=== PATIENT | male | born 1965 | race Caucasian/White ===

== ENCOUNTER 2016-10-22 10:59 | Emergency (ER) ==
[2016-10-22] MEDS ORDERED: NITROSTAT SL PRN (11:05)
[2016-10-22 11:07] VITALS: BP 164/104; TEMP 99.2; BMI 36.3
--- NOTE | 2016-10-22 11:33 | DI ---
EXAM: Chest one view, frontal view only. HISTORY: Chest pain. COMPARISON: 10/16/2013. FINDINGS: The heart size is normal. There is no pulmonary vascular congestion. The lungs are bean r. No pleural effusion or pneumothorax is seen. No acute osseous abnormality is identified. Since the prior study, there has been no significant interval change. IMPRESSION: No acute cardiopulmonary process.
[2016-10-22 12:05] LABS: BASOPHILS # (AUTO) 0.1 K/uL (0-0.2); BASOPHILS % (AUTO) 0.4 % (0.0-3.0); EOSINOPHILS # (AUTO) 0.3 K/ul (0.0-0.7); HEMATOCRIT 40.5 % (42.0-52.0); HEMOGLOBIN 14.7 g/dl (14.0-18.0); IMMATURE GRANULOCYTE % (AUTO) 0.7 % (0.0-5.0); LYMPHOCYTES # (AUTO) 3.4 K/uL (0.60-3.4); MEAN CORPUSCULAR HEMOGLOBIN 29.9 pg (27.0-31.0); MEAN CORPUSCULAR HGB CONC 36.3 (31.8-35.4); MEAN CORPUSCULAR VOLUME 82.5 fl (80.0-94.0); MONOCYTES # (AUTO) 0.7 K/uL (0.4-2.0); MONOCYTES % (AUTO) 5.2 (0-10); NEUTROPHILS # (AUTO) 8.6 K/ul (2.0-6.9); NEUTROPHILS % (AUTO) 65.7; PLATELET COUNT 280 10^3/uL (140-440); RED BLOOD COUNT 4.91 10^6/ul (4.70-6.10); WHITE BLOOD COUNT 13.07 K/ul (4.2-10.2)
--- NOTE | 2016-10-22 12:06 | ED.PDOC ---
General ED Provider: Dr. ARCADIO ROMERO JR Chief Complaint: Chest Pain Stated Complaint: woke up this am with pain to midchest that radiates into back- -sl sweaty--was able to go to work but pain is persistent and had to leave--had ekg with dr quintero at [facility] earlier this week--stress test scheduled.--stent placed 2013-pain has been off and on past 2 weeks [End]SINCE 0500 99.2 81 20 94 % 164/104 7/10 pain most every day for two to three weeks usually goes away still present today ibuprofenx 3--aspirin 325 at 0600--CONTINUOUS HEAVY BURNING PRESSURE WITH SWEATS Time Seen by Physician: 12:03 Mode of Arrival: Walk-In Information Source: Patient Exam Limitations: No limitations, Other Primary Care Provider: TIAN PA Nursing and Triage Documentation Reviewed and Agree: No Review of Systems - Review Of Systems Constitutional: Reports: Diaphoresis, Malaise Eyes: Reports: No symptoms Ears, Nose, Mouth, Throat: Reports: No symptoms Respiratory: Reports: No symptoms Cardiac: Reports: Chest pain GI: Reports: Abdominal pain : Reports: No symptoms Musculoskeletal: Reports: No symptoms Skin: Reports: No symptoms Neurological: Reports: No symptoms Endocrine: Reports: No symptoms Hematologic/Lymphatic: Reports: No symptoms All Other Systems: Other Past Medical History - Past Medical History Endocrine: Reports: DM 1, Dyslipidemia Cardiovascular: Reports: CAD, [place], Hypertension Respiratory: Reports: None Hematological: Reports: None Gastrointestinal: Reports: None Genitourinary: Reports: None Neuro/Psych: Reports: None Musculoskeletal: Reports: None Cancer: Reports: None - Surgical History General Surgical History: Reports: Stent (cardiac stent--), Other (brain surg- 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) - Family History Family History: Reports: Cancer (tumor removed upper left lobe) - Social History Smoking Status: Former smoker Hx Substance Use: No Alcohol Screening: None Physical Exam - Physical Exam Appearance: Ill-appearing, Obese Pain Distress: Moderate Eyes: AMISH, EOMI, Conjunctiva clear ENT: Ears normal, Nose normal, Oropharynx normal Neck: Supple Respiratory: Airway patent, Breath sounds clear, Breath sounds equal Cardiovascular: RRR, Pulses normal, No rub, No murmur GI/: Soft, Tender (epigastrium) Musculoskeletal: Normal strength, ROM intact, No edema, No calf tenderness Skin: Warm, Dry, Normal color Neurological: Sensation intact, Motor intact, Reflexes intact, Cranial nerves intact, Alert, Oriented Psychiatric: Affect appropriate, Mood appropriate Interpretation - Radiology Interpretation Radiology Interpretation By: Radiologist Radiology Results: Negative Exam Interpreted: CXR Radiology Interpretation By: Radiologist Radiology Results: Positive (mild acute pancreatitis) Exam Interpreted: CT Scan - EKG Interpretation Time of EKG #1: 11:20 Rate: Normal Rhythm: Sinus Ectopy: None [place]: NL ST Segment: Normal Critical Care Note - Critical Care Note Total Time (mins): 5 Course - Course Hematology/Chemistry: 10/22/16 11:27 10/22/16 11:27 Orders, Labs, Meds: Lab Review 10/22/16 11:27 WBC 13.07 H RBC 4.91 Hgb 14.7 Hct 40.5 L MCV 82.5 MCH 29.9 MCHC 36.3 H RDW Coeff of Mckayla 15.2 H Plt Count 280 Immature Gran % (Auto) 0.7 Neut % (Auto) 65.7 Lymph % (Auto) 26.0 [place] % (Auto) 5.2 Eos % (Auto) 2.0 Baso % (Auto) 0.4 Immature Gran # (Auto) 0.1 Neut # 8.6 H Lymph # 3.4 [place] # 0.7 Eos # 0.3 Baso # 0.1 Sodium 136 Potassium 4.4 Chloride 103 Carbon Dioxide 12 L Anion Gap 25.4 BUN 21 H Creatinine 1.07 Estimated GFR (MDRD) 72.00 BUN/Creatinine Ratio 19.62 Glucose 256 H Calcium 9.2 Total Bilirubin 0.70 AST 51 H ALT 105 H Alkaline Phosphatase 224 H Total Creatine Kinase 102 Troponin I < 0.0100 B-Natriuretic Peptide 22 Total Protein 8.1 Albumin 3.2 L Globulin 4.9 Albumin/Globulin Ratio 0.65 Amylase 80 Lipase 419 H H. pylori IgG Antibody Negative Orders Category Date Time Status EKG-(ED ONLY) Stat CARDIO 10/22/16 11:05 Completed ED IV/MEDIPORT/POWERPORT .ONCE EMERGENCY 10/22/16 11:05 Active AMYLASE Stat LAB 10/22/16 11:27 Completed B-TYPE NATRIURETIC PEPTIDE Stat LAB 10/22/16 11:27 Completed CBC W/ AUTO DIFF Stat LAB 10/22/16 11:27 Completed COMPREHENSIVE METABOLIC PANEL Stat LAB 10/22/16 11:27 Completed CREATINE KINASE Stat LAB 10/22/16 11:27 Completed H. PYLORI SCREEN Stat LAB 10/22/16 11:27 Completed LIPASE Stat LAB 10/22/16 11:27 Completed TROPONIN I Stat LAB 10/22/16 11:27 Completed URINALYSIS C & S IF INDICATED Stat LAB 10/22/16 12:15 Uncollected 0.9 % Sodium Chloride [Saline Flush] MEDS 10/22/16 11:05 Active 1 syr IVF PRN PRN Morphine Sulfate [Morphine 4 mg/ml Syringe] MEDS 10/22/16 13:57 Discontinued 4 mg IVP ONCE STA Nitroglycerin [Nitrostat] MEDS 10/22/16 11:05 Active 0.4 mg SL Q5MIN X 3 DOSES PRN Ondansetron HCl/Pf [Zofran 4 mg/2 ml] MEDS 10/22/16 13:57 Discontinued 4 mg IVP ONCE STA Pantoprazole Sodium [Protonix IV] MEDS 10/22/16 12:16 Discontinued 40 mg IVP ONCE STA Sodium Chloride 0.9% [Sodium Chloride] 1,000 ml MEDS 10/22/16 13:36 Active IV 200 mls/hr CHEST, 1V AP ONLY Stat RADS 10/22/16 11:[address] ABDOMEN/PELVIS WO CONTRAST Stat RADS 10/22/16 12:15 Completed Medications Generic Name Dose Route Start Last Admin Trade Name Freq PRN Reason Stop Dose Admin Sodium Chloride 1,000 mls @ 200 mls/hr 10/22/16 13:36 10/22/16 12:06 Sodium Chloride IV 10/22/16 18:35 200 mls/hr .Q5H STA Administration Nitroglycerin 0.4 mg 10/22/16 11:05 10/22/16 11:38 Nitrostat SL 0.4 mg Q5MIN X 3 DOSES PRN Administration Chest Pain Sodium Chloride 1 syr 10/22/16 11:05 10/22/16 11:35 Saline Flush IVF 1 syr PRN PRN Administration To flush IV Discontinued Medications Generic Name Dose Route Start Last Admin Trade Name Freq PRN Reason Stop Dose Admin Morphine Sulfate 4 mg 10/22/16 13:57 10/22/16 14:06 Morphine 4 Mg/Ml Syringe IVP 10/22/16 13:58 4 mg ONCE STA Administration Ondansetron HCl 4 mg 10/22/16 13:57 10/22/16 14:03 Zofran 4 Mg/2 Ml IVP 10/22/16 13:58 4 mg ONCE STA Administration Pantoprazole Sodium 40 mg 10/22/16 12:16 10/22/16 12:30 Protonix Iv IVP 10/22/16 12:17 40 mg ONCE STA Administration Vital Signs: Temp Pulse Resp BP Pulse Ox 10/22/16 11:00 99.2 F 81 20 164/104 H 94 L DOROTHY Risk Score DOROTHY Risk Score: Risk Score Odds of by 30D 0 0.1 (0.1-0.2) 1 0.3 (0.2-0.3) 2 0.4 (0.3-0.5) 3 0.7 (0.6-0.9) 4 1.2 (1.0-1.5) 5 2.2 (1.9-2.6) 6 3.0 (2.5-3.6) 7 4.8 (3.8-6.1) Departure - Departure Time of Disposition: 14:57 Disposition: TSF SHORT-TRM HOSP Discharge Problem: Acute pancreatitis Qualifiers: Pancreatitis type: unspecified pancreatitis type Acute pancreatitis complication: no infection or necrosis Qualifier Code: (K85.90) Acute pancreatitis without necrosis or infection, unspecified Condition: Stable Pt referred to PMD for follow-up: Yes Allergies/Adverse Reactions: Allergies No Known Allergies Allergy (Verified 10/22/16 11:23) Home Medications: Ambulatory Orders Aspirin [Lo-Dose Aspirin EC] 81 mg PO DAILY 10/22/16 Atorvastatin Calcium 80 mg PO BEDTIME 10/22/16 Fenofibrate,Micronized [Fenofibrate] 134 mg PO DAILY 10/22/16 Insulin Glargine,Hum.rec.anlog [Lantus] 125 unit SUBCUT BEDTIME 10/22/16 Insulin Lispro [Humalog] 15 unit SUBCUT TIDWM 10/22/16 Lisinopril [Zestril] 5 mg PO DAILY 10/22/16 Metformin HCl 1,000 mg PO BEDTIME 10/22/16 Metoprolol Tartrate [Lopressor] 75 mg PO BID 10/22/16
[2016-10-22] MEDS ORDERED: PROTONIX IV IVP STA (12:16)
[2016-10-22 12:31] LABS: H. PYLORI ANTIBODY NEGATIVE (NEGATIVE); H.PYLORI INTERNAL QC INTERNAL QC VALID
[2016-10-22 13:24] LABS: AMYLASE 80 U/L (25-115); POTASSIUM 4.4 mmol/L (3.5-5.1)
[2016-10-22 13:25] LABS: ANION GAP 25.4; BLOOD UREA NITROGEN 21 mg/dL (7-18); BUN/CREATININE RATIO 19.62; CALCIUM 9.2 mg/dL (8.2-10.2); CARBON DIOXIDE 12 mmol/L (21-32); CHLORIDE 103 mmol/L (98-107); CREATININE 1.07 mg/dL (0.60-1.10); GLUCOSE 256 mg/dL (70-100)
[2016-10-22 13:26] LABS: ALANINE AMINOTRANSFERASE 105 U/L (12-78); ALBUMIN 3.2 g/dL (3.4-5.0); ALBUMIN/GLOBULIN RATIO 0.65; ALKALINE PHOSPHATASE 224 U/L (50-136); ASPARTATE AMINO TRANSFERASE 51 U/L (15-37); TOTAL PROTEIN 8.1 g/dL (6.4-8.2)
[2016-10-22 13:27] LABS: LIPASE 419 U/L (8-78); SODIUM 136 mmol/L (136-145)
[2016-10-22 13:29] LABS: CREATINE KINASE 102 U/L
[2016-10-22] MEDS ORDERED: SODIUM CHLORIDE 1,000 ML IV STA (13:36)
--- NOTE | 2016-10-22 13:53 | CT ---
EXAM: CT Abdomen without contrast. CT Pelvis without contrast. HISTORY: Epigastric pain for 2-3 weeks. COMPARISON: None available. TECHNIQUE: Multiple axial images of the abdomen and pelvis were obtained without intravenous contra st. Images were reformatted in the coronal plane. FINDINGS: Please note that evaluation of the abdominal and pelvic structures is limited due to lack of intravenous contrast. Dependent subsegmental atelectasis noted in the posterior right lower lobe. Degenerative changes pr esent in the spine. The liver is enlarged. The gallbladder is unremarkable. There is haziness surrounding the pancreat ic head. Pancreatic tail appears unremarkable. The spleen and adrenal glands appear normal. There is a 0.3 cm nonobstructing right renal calculus. No hydronephrosis identified. Small hiatal hernia noted. There is no evidence for bowel obstruction. A few diverticula present i n the colon. The appendix is normal. Urinary bladder is unremarkable. Prostatic calcifications ar e present. Atherosclerotic calcifications noted. There is a small fat-containing umbilical hernia. No free fluid or free air identified IMPRESSION: 1. Mild acute pancreatitis involving the pancreatic head. Consider pancreatic protocol abdominal C T in 4-6 weeks after resolution of symptoms to exclude underlying mass. 2. Hepatomegaly. 3. Right nephrolithiasis. 4. Small hiatal hernia. 5. Mild diverticulosis.
[2016-10-22] MEDS ORDERED: ZOFRAN 4 MG/2 ML IVP STA (13:57)
[2016-10-22] MEDS ORDERED: MORPHINE 4 MG/ML SYRINGE IVP STA (13:57)
[2016-10-22] MEDS ORDERED: MORPHINE 2 MG/ML SYRINGE IVP STA (14:59)
[2016-10-22 15:54] LABS: BILIRUBIN,URINE Negative (NEGATIVE); KETONES,URINE Negative (NEGATIVE); LEUKOCYTE ESTERASE ,URINE Negative (NEGATIVE); NITRITE,URINE Negative (NEGATIVE); PH,URINE 5.5 (5-9); PROTEIN,URINE 1+ (NEGATIVE); URINE, BLOOD Trace-lysed (NEGATIVE)
[2016-10-22 15:56] LABS: ADD URINE MICROSCOPIC YES
== END 2016-10-22 15:28 | disposition short-term general hospital (02) ==
LOC: ED 10:59
DX: K85.90 Acute pancreatitis without necrosis or infection, unspecified (principal); I10 Essential (primary) hypertension; I25.10 Atherosclerotic heart disease of native coronary artery without angina pectoris; E10.9 Type 1 diabetes mellitus without complications; E78.5 Hyperlipidemia, unspecified; I25.2 Old myocardial infarction; Z79.899 Other long term (current) drug therapy; Z95.5 Presence of coronary angioplasty implant and graft; Z86.79 Personal history of other diseases of the circulatory system
CPT/HCPCS: 36415; 80053; 81001; 82150; 82550; 83690; 83880; 84484; 85025; 86677; 93005; 93010; 96361; 96374; 96375; 96376; 99285

== ENCOUNTER 2017-05-03 10:12 | Emergency (ER) ==
[2017-05-03 10:22] VITALS: BP 148/92; TEMP 97; BMI 33.3
--- NOTE | 2017-05-03 10:29 | ED.PDOC ---
General ED Provider: Dr. JENNIFER SHIPMAN-ER Chief Complaint: Extremity Swelling/Pain Stated Complaint: i have diabetic neuropathy--ajk had it since sep--dr palma is increasing my gabapentin but its not helping and its making me sleeping Time Seen by Physician: 10:15 Mode of Arrival: Walk-In Information Source: Patient Exam Limitations: No limitations Primary Care Provider: TIAN PALMA Nursing and Triage Documentation Reviewed and Agree: Yes Neurological Complaint Exam - Neurological Deficit Complaint/Exam Patient Complains of: Reports: Abnormal sensation Symptom Onset Unknown: No Symptom Onset Date: 09/17/16 Onset: Gradual Symptoms Are: Still present Initial Severity: Mild Current Severity: Moderate Location: Reports: RUE, LUE, RLE, LLE Character: Reports: Numbness, Tingling, Paresthesia, Sensory loss Aggravating: Reports: None Alleviating: Reports: None Associated Signs and Symptoms: Denies: Confusion, Agitation, Responsiveness, LOC , Headache, Fever, Nuchal rigidity, Recent trauma, Remote trauma, Recent illness Related History: Reports: Similar episode CVA Risk Factors: Reports: Diabetes Carotid Bruit Present: No Glascow Coma Scale (see protocol): 15 Meningeal Signs Positive: No Focal Weakness: Present: None Focal Sensory Loss: Present: RUE, LUE, RLE, LLE Gait: Normal Nystagmus Present: No Gag Reflex Present: Yes [id number]: Normal Findings Romberg Test Positive: No Babinski Sign: Negative Right, Negative Left Heel to Toe Normal: Yes Signs of Trauma: No Differential Diagnoses: Other Review of Systems - Review Of Systems Constitutional: Reports: No symptoms Eyes: Reports: No symptoms Ears, Nose, Mouth, Throat: Reports: No symptoms Respiratory: Reports: No symptoms Cardiac: Reports: No symptoms GI: Reports: No symptoms : Reports: No symptoms Musculoskeletal: Reports: No symptoms Skin: Reports: No symptoms Neurological: Reports: Numbness, Tingling Endocrine: Reports: No symptoms Hematologic/Lymphatic: Reports: No symptoms All Other Systems: Reviewed and Negative Past Medical History - Past Medical History Previously Healthy: No Endocrine: Reports: DM 1, Dyslipidemia Cardiovascular: Reports: CAD, [place], Hypertension Respiratory: Reports: None Hematological: Reports: None Gastrointestinal: Reports: None Genitourinary: Reports: None Neuro/Psych: Reports: None Musculoskeletal: Reports: None Cancer: Reports: None - Surgical History General Surgical History: Reports: Stent (cardiac stent--), Other (brain surg- 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) - Family History Family History: Reports: Cancer (tumor removed upper left lobe) - Social History Smoking Status: Former smoker Hx Substance Use: No Alcohol Screening: None Lives: With family Physical Exam - Physical Exam Appearance: Well-appearing, No pain distress, Well-nourished Pain Distress: Mild Eyes: AMISH, EOMI, Conjunctiva clear ENT: Ears normal, Nose normal, Oropharynx normal Neck: Supple Respiratory: Airway patent, Breath sounds clear, Breath sounds equal, Respirations nonlabored Cardiovascular: RRR, Pulses normal, No rub, No murmur GI/: Soft, Nontender, No masses, Bowel sounds normal, No Organomegaly Musculoskeletal: Normal strength, ROM intact, No edema, No calf tenderness Skin: Warm, Dry, Normal color Neurological: Alert, Oriented, Focal Deficit (diminished sensation hands and feet and lower legs) Psychiatric: Affect appropriate, Mood appropriate Critical Care Note - Critical Care Note Total Time (mins): 0 Course - Course Vital Signs: Temp Pulse Resp BP Pulse Ox 05/03/17 10:14 97 F L 82 18 148/92 H 93 L Departure - Departure Time of Disposition: 10:31 Disposition: HOME SELF-CARE Discharge Problem: Neuropathy Instructions: Diabetic Peripheral Neuropathy (ED) Condition: Good Pt referred to PMD for follow-up: Yes Additional Instructions: stop gabapentin---lyrica 50mg tid x 7 days then 150mg bid --f/u with dr palma Allergies/Adverse Reactions: Allergies No Known Allergies Allergy (Verified 05/03/17 10:19) Home Medications: Ambulatory Orders Aspirin [Lo-Dose Aspirin EC] 81 mg PO DAILY 10/22/16 Atorvastatin Calcium 80 mg PO BEDTIME 10/22/16 Fenofibrate,Micronized [Fenofibrate] 134 mg PO DAILY 10/22/16 Insulin Glargine,Hum.rec.anlog [Lantus] 125 unit SUBCUT BEDTIME 10/22/16 Insulin Lispro [Humalog] 15 unit SUBCUT TIDWM 10/22/16 Lisinopril [Zestril] 5 mg PO DAILY 10/22/16 Metformin HCl 1,000 mg PO BEDTIME 10/22/16 Metoprolol Tartrate [Lopressor] 75 mg PO BID 10/22/16 Gabapentin 400 mg PO TID 05/03/17 Pantoprazole Sodium 400 mg PO DAILY 05/03/17 Disposition Discussed With: Patient
== END 2017-05-03 10:38 | disposition home or self-care (01) ==
LOC: ED 10:12
DX: E10.42 Type 1 diabetes mellitus with diabetic polyneuropathy (principal); Z79.4 Long term (current) use of insulin
CPT/HCPCS: 99283

== ENCOUNTER 2021-09-11 16:42 | Observation (INO) ==
--- NOTE | 2021-09-11 17:00 | ED.PDOC ---
General <JENNIFER CARRION DO - Last Filed: 09/12/21 12:15> ED Provider: Dr. JENNIFER CARRION Chief Complaint: Shortness of Air Stated Complaint: SOB-referred from dialysis, Advised O2 stat was in low 80%. Currently 92 % Room Air. Apparently recently discharged from [facility] after treatment of respiratory failure and was on ventilator for 5 days. States not sent home on oxygen Time Seen by Provider: 09/11/21 16:45 Mode of Arrival: Wheelchair Information Source: Patient Exam Limitations: No limitations Primary Care Provider: TIAN LEBLANC Referred to ED by: Other Nursing and Triage Documentation Reviewed and Agree: Yes Does patient meet sepsis criteria?: No System Inflammatory Response Syndrome: Not Applicable Sepsis Protocol: For patient's 13 years and over: Temp is 96.8 and below OR 101 and greater Pulse >90 BPM Resp >20/minute Acutely Altered Mental Status Are patient's symptoms suggestive of a new infection, such as: -Pneumonia -Skin, Soft Tissue -Endocarditis -UTI -Bone, Joint Infection -Implantable Device -Acute Abdominal Infection -Wound Infection -Meningitis -Blood Stream Catheter Infection -Unknown Respiratory Complaint Exam <JENNIFER CARRION DO - Last Filed: 09/12/21 12:15> Respiratory Complaint/Exam Onset/Duration: Long standing COPD Symptoms Are: Still present Timing: Constant Initial Severity: Moderate Current Severity: Mild Location: Chest Character: Reports Dry cough Aggravating: Reports Exertion Alleviating: Reports None Associated Signs and Symptoms: Reports Dyspnea; Denies Rapid breathing, Fever, Chills, Chest pain, Pleuritic chest pain, Wheezing, Hemoptysis, Dizziness, Calf pain, Calf swelling, Edema, URI, Nasal congestion, Hoarseness, Sinus discomfort, Vomiting, Sore throat, Weight loss, Decreased oral intake, Increased thirst, Increased appetite or Increased urination Related History: Reports Similar episode History of Healthcare-Acquired Pneumonia: No Related Surgical History: Reports None Pulmonary Embolism Risk Factors: None Cardiac Risk Factors: Reports None Pseudomonas Risk Factors: Reports None Tuberculosis Risk Factors: Reports None Status Asthmaticus Risk Factors: Reports None Home Oxygen Use: No Recent Stress Test: No Recent Echo/LV Function: No Current Antibiotic Use: No Current Asthma Medication Use: Yes Respiratory Distress: None Inadequate Respiratory Effort: Yes Dysphagia Present: No Stridor Present: No JVD Present: No Retractions: Not Present Sinus Tenderness: None Kussmaul Respirations: No Differential Diagnoses: COPD Exacerbation Review of Systems <DO Ok ROUSSEAU Last Filed: 09/12/21 12:15> Review Of Systems Constitutional: Reports Malaise and Weakness Eyes: Reports No symptoms Ears, Nose, Mouth, Throat: Reports No symptoms Respiratory: Reports Cough and Short of air Cardiac: Reports No symptoms GI: Reports No symptoms : Reports No symptoms Musculoskeletal: Reports No symptoms Skin: Reports No symptoms Neurological: Reports Anxiety Endocrine: Reports No symptoms All Other Systems: Reviewed and Negative PFSH <DO Ok ROUSSEAU Last Filed: 09/12/21 12:15> Medical History (Updated 09/11/21 @ 23:55 by OTILIO FLORES, RN) Acid reflux Acute renal failure on dialysis Brain aneurysm Diabetes Hypertension Myocardial infarct Pancreatitis Tumor Family History (Updated 09/11/21 @ 23:52 by OTILIO FLORES, RN) Other No known health problems Social History (Updated 09/11/21 @ 23:53 by OTILIO FLORES, RN) Smoking and tobacco status: Former smoker Tobacco: How many years used: 37 (Pt quit in 2020 after triple bypass) Surgical History (Updated 09/11/21 @ 23:52 by OTILIO FLORES, RN) Hx of CABG Physical Exam <DO Ok ROUSSEAU Last Filed: 09/12/21 12:15> Physical Exam Appearance: Reports Ill-appearing and Well-nourished Ill-appearing: Mild Pain Distress: Not Applicable Eyes: Reports AMISH, EOMI, Conjunctiva clear and Conjunctiva pale ENT: Reports Ears normal Neck: Supple Respiratory: Reports Airway patent, Breath sounds clear, Breath sounds equal, Breath sounds diminished and Respirations nonlabored Cardiovascular: Reports RRR, Pulses normal, No rub, No murmur and Irregular rhythm GI/: Reports Nontender, No masses and No Organomegaly Musculoskeletal: Reports Normal strength, ROM intact and No edema Skin: Reports Warm, Dry and Normal color Neurological: Reports Sensation intact, Motor intact, Reflexes intact, Cranial nerves intact, Oriented, Disoriented and Alert to verbal Psychiatric: Reports Affect appropriate, Mood appropriate and Anxious Interpretation <DO Ok ROUSSEAU Last Filed: 09/12/21 12:15> Radiology Interpretation Exam Interpreted: Portable CXR (Diffuse bilateral lung opacities likely due to pulmonary edema and/or multifocal pneumonia) Physician Notification <DO Ok ROUSSEAU Last Filed: 09/12/21 12:15> Case Discussed Physician Notified: dr Thompson-turned over for ER care Time of Notification: 20:00 <GARETH THOMPSON MD - Last Filed: 09/12/21 00:15> Case Discussed Physician Notified: Dr aquino Time of Notification: 22:00 <GARETH THOMPSON MD - Last Filed: 09/12/21 00:15> Critical Care Note Total Critical Care Time (mins): 30 Course <JENINFER CARRION DO - Last Filed: 09/12/21 12:15> Course Hematology/Chemistry: 09/12/21 04:30 09/12/21 04:30 Orders, Labs, Meds: Lab Review 09/11/21 09/11/21 09/11/21 17:05 17:05 17:21 WBC 7.91 RBC 3.59 L Hgb 8.2 L Hct 26.9 L MCV 74.9 L MCH 22.8 L MCHC 30.5 L RDW Coeff of Mckayla 20.2 H Plt Count 301 Immature Gran % (Auto) 0.4 Neut % (Auto) 83.2 H Lymph % (Auto) 6.3 L [place] % (Auto) 6.4 Eos % (Auto) 3.4 Baso % (Auto) 0.3 Neut # (Auto) 6.6 Lymph # (Auto) 0.5 L [place] # (Auto) 0.5 Eos # (Auto) 0.3 Baso # (Auto) 0.0 Immature Gran # (Auto) 0.0 Hypochromasia 2+ Anisocytosis 1+ Ovalocytes 2+ Puncture Site Base Excess O2 Saturation ABG pH ABG pCO2 ABG pO2 ABG HCO3 ABG Total CO2 [place] Test Hemoglobin Oxyhemoglobin Carboxyhemoglobin Total Hemoglobin FiO2 % Sodium Potassium Chloride Carbon Dioxide Anion Gap BUN Creatinine Estimated GFR (MDRD) BUN/Creatinine Ratio Glucose Calcium Total Bilirubin AST ALT Alkaline Phosphatase Total Creatine Kinase Total Protein Albumin Globulin Albumin/Globulin Ratio Procalcitonin D-Dimer Influ A Molecular Assay Negative by naat Influ B Molecular Assay Negative by naat SARS CoV-2 RNA Rapid MARTINEZ Negative 09/11/21 09/11/21 09/11/21 17:21 17:21 17:21 WBC RBC Hgb Hct MCV MCH MCHC RDW Coeff of Cmkayla Plt Count Immature Gran % (Auto) Neut % (Auto) Lymph % (Auto) [place] % (Auto) Eos % (Auto) Baso % (Auto) Neut # (Auto) Lymph # (Auto) [place] # (Auto) Eos # (Auto) Baso # (Auto) Immature Gran # (Auto) Hypochromasia Anisocytosis Ovalocytes Puncture Site Base Excess O2 Saturation ABG pH ABG pCO2 ABG pO2 ABG HCO3 ABG Total CO2 [place] Test Hemoglobin Oxyhemoglobin Carboxyhemoglobin Total Hemoglobin FiO2 % Sodium 135.8 Potassium 3.04 L Chloride 93.7 L Carbon Dioxide 33.7 H Anion Gap 11.44 BUN 11.6 Creatinine 2.54 H Estimated GFR (MDRD) 26.00 BUN/Creatinine Ratio 4.56 Glucose 74.9 Calcium 9.37 Total Bilirubin 1.15 AST 44.1 ALT 54.3 H Alkaline Phosphatase 377.5 H Total Creatine Kinase 20.9 L Total Protein 7.53 Albumin 3.84 Globulin 3.69 Albumin/Globulin Ratio 1.04 Procalcitonin 1.43 H D-Dimer 2059.73 H Influ A Molecular Assay Influ B Molecular Assay SARS CoV-2 RNA Rapid MARTINEZ 09/11/21 18:56 WBC RBC Hgb Hct MCV MCH MCHC RDW Coeff of Mckayla Plt Count Immature Gran % (Auto) Neut % (Auto) Lymph % (Auto) [place] % (Auto) Eos % (Auto) Baso % (Auto) Neut # (Auto) Lymph # (Auto) [place] # (Auto) Eos # (Auto) Baso # (Auto) Immature Gran # (Auto) Hypochromasia Anisocytosis Ovalocytes Puncture Site Rrad Base Excess 10.8 H O2 Saturation 87.9 L ABG pH 7.60 H* ABG pCO2 33.0 L ABG pO2 44.0 L* ABG HCO3 32.4 H ABG Total CO2 33.4 H [place]uy Test Pos Hemoglobin 0.7 Oxyhemoglobin 85.2 L Carboxyhemoglobin 3.1 H Total Hemoglobin 8.3 L FiO2 % 21.0 Sodium Potassium Chloride Carbon Dioxide Anion Gap BUN Creatinine Estimated GFR (MDRD) BUN/Creatinine Ratio Glucose Calcium Total Bilirubin AST ALT Alkaline Phosphatase Total Creatine Kinase Total Protein Albumin Globulin Albumin/Globulin Ratio Procalcitonin D-Dimer Influ A Molecular Assay Influ B Molecular Assay SARS CoV-2 RNA Rapid MARTINEZ Orders Category Date Time Status ABG DRAW REQUEST Stat CARDIO 09/11/21 17:00 Completed EKG-(ED ONLY) Stat CARDIO 09/11/21 17:00 Completed ABG COOX Stat LAB 09/11/21 18:56 Completed BLOOD CULTURE (ED ONLY) Stat LAB 09/11/21 17:21 Received CBC W/ AUTO DIFF Stat LAB 09/11/21 17:21 Completed CMP [COMPREHENSIVE METABOLIC PANEL] Stat LAB 09/11/21 17:21 Completed CREATINE KINASE Stat LAB 09/11/21 17:21 Completed D-DIMER Stat LAB 09/11/21 17:21 Completed FLU A & B MOLECULAR [FLU A/B MOLECULAR] Stat LAB 09/10/21 17:09 Completed PROCALCITONIN Stat LAB 09/11/21 17:21 Completed RBC MORPHOLOGY Stat LAB 09/11/21 17:21 Completed SARS COV-2 RNA RAPID MARTINEZ Stat LAB 09/11/21 17:05 Completed Ceftriaxone/D5w 1 gm Premix [Rocephin 1 gm/50 ml D5w] MEDS 09/11/21 21:45 Discontinued 1 gm in 50 ml IV ONCE CHEST, 1V AP ONLY Stat RADS 09/11/21 17:00 Completed Medications Generic Name Dose Route Start Last Admin Trade Name Freq PRN Reason Stop Dose Admin Acetaminophen 650 mg 09/11/21 22:23 Acetaminophen 325 Mg Tablet PO Q4H PRN Fever and Mild Pain Albuterol Sulfate 2 puff 09/12/21 06:00 09/12/21 10:44 Albuterol Sulfate (Ventolin Hfa) 18 Gm 1 Puff With Spacer IH 2 puff RTQID JOHNNY Administration Aspirin 81 mg 09/12/21 08:30 09/12/21 08:13 Aspirin 81 Mg Tablet. PO 81 mg DAILYWM JOHNNY Administration Atorvastatin Calcium 80 mg 09/12/21 21:00 Atorvastatin Calcium 20 Mg Tablet PO BEDTIME JOHNNY Azithromycin 250 mg 09/12/21 09:00 09/12/21 08:14 Azithromycin 250 Mg Tablet PO 09/15/21 11:00 250 mg DAILY JOHNNY Administration Fenofibrate 108 mg 09/12/21 09:00 09/12/21 08:13 Fenofibrate 54 Mg Tablet PO 108 mg DAILY JOHNNY Administration Fluticasone Propionate 2 puff 09/12/21 09:00 09/12/21 08:23 Fluticasone Propionate 220 Mcg Inh IH 2 puff BID JOHNNY Administration Gabapentin 400 mg 09/12/21 09:00 09/12/21 08:14 Gabapentin 100 Mg Capsule PO 400 mg TID JOHNNY Administration CEFTRIAXONE/D5W 1 GM PREMIX 1 gm in 50 mls @ 75 mls/hr 09/12/21 21:00 Rocephin 1 Gm/50 Ml D5w IV 09/15/21 20:59 BEDTIME [facility], [facility]1983 Insulin Glargine 125 unit 09/12/21 21:00 Insulin Glargine,Hum.Rec.Anlog 100 Units/Ml SUBCUT BEDTIME [facility], [facility]1983 Insulin Human Lispro 15 unit 09/12/21 08:30 09/12/21 10:56 Insulin Lispro 100 Unit/Ml (3 Ml) Vial SUBCUT Not Given TIDWM [facility]1983 Lisinopril 5 mg 09/12/21 09:00 09/12/21 08:15 Lisinopril 5 Mg Tablet PO 5 mg DAILY JOHNNY Administration Metoprolol Tartrate 75 mg 09/12/21 09:00 09/12/21 08:14 Metoprolol Tartrate 50 Mg Tablet PO 75 mg BID JOHNNY Administration Ondansetron HCl 4 mg 09/11/21 22:23 Ondansetron Hcl/Pf 4 Mg/2 Ml Sdv IVP Q6H PRN Nausea / Vomiting Pantoprazole Sodium 40 mg 09/13/21 06:30 Pantoprazole Sodium 40 Mg Tablet.Dr PO QDAC JOHNNY Sodium Chloride 1 syr 09/12/21 05:00 09/12/21 06:28 0.9% Sodium Chloride 10 Ml Disp.Syrin IVF 1 syr Q8HR JOHNNY Administration Discontinued Medications Generic Name Dose Route Start Last Admin Trade Name Freq PRN Reason Stop Dose Admin Acetaminophen 650 mg 09/11/21 22:22 09/11/21 22:34 Acetaminophen 325 Mg Tablet PO 09/11/21 22:23 650 mg ONCE ONE Administration Albuterol Sulfate 2 puff 09/12/21 09:00 Albuterol Sulfate (Ventolin Hfa) 18 Gm 1 Puff With Spacer IH QID JOHNNY Azithromycin 500 mg 09/11/21 22:23 09/11/21 22:36 Azithromycin 250 Mg Tablet PO 09/11/21 22:24 500 mg ONCE STA Administration CEFTRIAXONE/D5W 1 GM PREMIX 1 gm in 50 mls @ 75 mls/hr 09/11/21 21:45 22:05 Rocephin 1 Gm/50 Ml D5w IV 09/11/21 22:24 75 mls/hr ONCE STA Administration Pantoprazole Sodium 40 mg 09/12/21 09:00 09/12/21 08:13 Pantoprazole Sodium 40 Mg Tablet.Dr PO 40 mg DAILY JOHNNY Administration Vital Signs: Temp Pulse Resp BP Pulse Ox 09/11/21 19:40 95 H 20 159/81 H 86 L 09/11/21 17:10 96 09/11/21 16:42 98.2 F 94 H 20 148/73 H 90 L <GARETH THOMPSON MD - Last Filed: 09/12/21 00:15> Course Orders, Labs, Meds: Lab Review 09/11/21 09/11/21 09/11/21 17:05 17:05 17:21 WBC 7.91 RBC 3.59 L Hgb 8.2 L Hct 26.9 L MCV 74.9 L MCH 22.8 L MCHC 30.5 L RDW Coeff of Mckayla 20.2 H Plt Count 301 Immature Gran % (Auto) 0.4 Neut % (Auto) 83.2 H Lymph % (Auto) 6.3 L [place] % (Auto) 6.4 Eos % (Auto) 3.4 Baso % (Auto) 0.3 Neut # (Auto) 6.6 Lymph # (Auto) 0.5 L [place] # (Auto) 0.5 Eos # (Auto) 0.3 Baso # (Auto) 0.0 Immature Gran # (Auto) 0.0 Hypochromasia 2+ Anisocytosis 1+ Ovalocytes 2+ Puncture Site Base Excess O2 Saturation ABG pH ABG pCO2 ABG pO2 ABG HCO3 ABG Total CO2 [place] Test Hemoglobin Oxyhemoglobin Carboxyhemoglobin Total Hemoglobin FiO2 % Sodium Potassium Chloride Carbon Dioxide Anion Gap BUN Creatinine Estimated GFR (MDRD) BUN/Creatinine Ratio Glucose Calcium Total Bilirubin AST ALT Alkaline Phosphatase Total Creatine Kinase Total Protein Albumin Globulin Albumin/Globulin Ratio Procalcitonin D-Dimer Influ A Molecular Assay Negative by naat Influ B Molecular Assay Negative by naat SARS CoV-2 RNA Rapid MARTINEZ Negative 09/11/21 09/11/21 09/11/21 17:21 17:21 17:21 WBC RBC Hgb Hct MCV MCH MCHC RDW Coeff of Mckayla Plt Count Immature Gran % (Auto) Neut % (Auto) Lymph % (Auto) [place] % (Auto) Eos % (Auto) Baso % (Auto) Neut # (Auto) Lymph # (Auto) [place] # (Auto) Eos # (Auto) Baso # (Auto) Immature Gran # (Auto) Hypochromasia Anisocytosis Ovalocytes Puncture Site Base Excess O2 Saturation ABG pH ABG pCO2 ABG pO2 ABG HCO3 ABG Total CO2 [place] Test Hemoglobin Oxyhemoglobin Carboxyhemoglobin Total Hemoglobin FiO2 % Sodium 135.8 Potassium 3.04 L Chloride 93.7 L Carbon Dioxide 33.7 H Anion Gap 11.44 BUN 11.6 Creatinine 2.54 H Estimated GFR (MDRD) 26.00 BUN/Creatinine Ratio 4.56 Glucose 74.9 Calcium 9.37 Total Bilirubin 1.15 AST 44.1 ALT 54.3 H Alkaline Phosphatase 377.5 H Total Creatine Kinase 20.9 L Total Protein 7.53 Albumin 3.84 Globulin 3.69 Albumin/Globulin Ratio 1.04 Procalcitonin 1.43 H D-Dimer 2059.73 H Influ A Molecular Assay Influ B Molecular Assay SARS CoV-2 RNA Rapid MARTINEZ 09/11/21 18:56 WBC RBC Hgb Hct MCV MCH MCHC RDW Coeff of Mckayla Plt Count Immature Gran % (Auto) Neut % (Auto) Lymph % (Auto) [place] % (Auto) Eos % (Auto) Baso % (Auto) Neut # (Auto) Lymph # (Auto) [place] # (Auto) Eos # (Auto) Baso # (Auto) Immature Gran # (Auto) Hypochromasia Anisocytosis Ovalocytes Puncture Site Rrad Base Excess 10.8 H O2 Saturation 87.9 L ABG pH 7.60 H* ABG pCO2 33.0 L ABG pO2 44.0 L* ABG HCO3 32.4 H ABG Total CO2 33.4 H [place] Test Pos Hemoglobin 0.7 Oxyhemoglobin 85.2 L Carboxyhemoglobin 3.1 H Total Hemoglobin 8.3 L FiO2 % 21.0 Sodium Potassium Chloride Carbon Dioxide Anion Gap BUN Creatinine Estimated GFR (MDRD) BUN/Creatinine Ratio Glucose Calcium Total Bilirubin AST ALT Alkaline Phosphatase Total Creatine Kinase Total Protein Albumin Globulin Albumin/Globulin Ratio Procalcitonin D-Dimer Influ A Molecular Assay Influ B Molecular Assay SARS CoV-2 RNA Rapid MARTINEZ Orders Category Date Time Status ABG DRAW REQUEST Stat CARDIO 09/11/21 17:00 Completed EKG-(ED ONLY) Stat CARDIO 09/11/21 17:00 Completed ABG COOX Stat LAB 09/11/21 18:56 Completed BLOOD CULTURE (ED ONLY) Stat LAB 09/11/21 17:21 Received CBC W/ AUTO DIFF Stat LAB 09/11/21 17:21 Completed CMP [COMPREHENSIVE METABOLIC PANEL] Stat LAB 09/11/21 17:21 Completed CREATINE KINASE Stat LAB 09/11/21 17:21 Completed D-DIMER Stat LAB 09/11/21 17:21 Completed FLU A & B MOLECULAR [FLU A/B MOLECULAR] Stat LAB 09/10/21 17:09 Completed PROCALCITONIN Stat LAB 09/11/21 17:21 Completed RBC MORPHOLOGY Stat LAB 09/11/21 17:21 Completed SARS COV-2 RNA RAPID MARTINEZ Stat LAB 09/11/21 17:05 Completed Ceftriaxone/D5w 1 gm Premix [Rocephin 1 gm/50 ml D5w] MEDS 09/11/21 21:45 Discontinued 1 gm in 50 ml IV ONCE CHEST, 1V AP ONLY Stat RADS 09/11/21 17:00 Completed Medications Generic Name Dose Route Start Last Admin Trade Name Freq PRN Reason Stop Dose Admin Acetaminophen 650 mg 09/11/21 22:23 Acetaminophen 325 Mg Tablet PO Q4H PRN Fever and Mild Pain Albuterol Sulfate 2 puff 09/12/21 06:00 09/12/21 10:44 Albuterol Sulfate (Ventolin Hfa) 18 Gm 1 Puff With Spacer IH 2 puff RTQID JOHNNY Administration Aspirin 81 mg 09/12/21 08:30 09/12/21 08:13 Aspirin 81 Mg Tablet.Dr PO 81 mg DAILYWM JOHNNY Administration Atorvastatin Calcium 80 mg 09/12/21 21:00 Atorvastatin Calcium 20 Mg Tablet PO BEDTIME JOHNNY Azithromycin 250 mg 09/12/21 09:00 09/12/21 08:14 Azithromycin 250 Mg Tablet PO 09/15/21 11:00 250 mg DAILY JOHNNY Administration Fenofibrate 108 mg 09/12/21 09:00 09/12/21 08:13 Fenofibrate 54 Mg Tablet PO 108 mg DAILY JOHNNY Administration Fluticasone Propionate 2 puff 09/12/21 09:00 09/12/21 08:23 Fluticasone Propionate 220 Mcg Inh IH 2 puff BID JOHNNY Administration Gabapentin 400 mg 09/12/21 09:00 09/12/21 08:14 Gabapentin 100 Mg Capsule PO 400 mg TID JOHNNY Administration CEFTRIAXONE/D5W 1 GM PREMIX 1 gm in 50 mls @ 75 mls/hr 09/12/21 21:00 Rocephin 1 Gm/50 Ml D5w IV 09/15/21 20:59 BEDTIME FORMERLY [facility], 1928[facility]1983 Insulin Glargine 125 unit 09/12/21 21:00 Insulin Glargine,Hum.Rec.Anlog 100 Units/Ml SUBCUT BEDTIME FOR[facility], [facility]1983 Insulin Human Lispro 15 unit 09/12/21 08:30 09/12/21 10:56 Insulin Lispro 100 Unit/Ml (3 Ml) Vial SUBCUT Not Given TIDWM [facility]1983 Lisinopril 5 mg 09/12/21 09:00 09/12/21 08:15 Lisinopril 5 Mg Tablet PO 5 mg DAILY JOHNNY Administration Metoprolol Tartrate 75 mg 09/12/21 09:00 09/12/21 08:14 Metoprolol Tartrate 50 Mg Tablet PO 75 mg BID JOHNNY Administration Ondansetron HCl 4 mg 09/11/21 22:23 Ondansetron Hcl/Pf 4 Mg/2 Ml Sdv IVP Q6H PRN Nausea / Vomiting Pantoprazole Sodium 40 mg 09/13/21 06:30 Pantoprazole Sodium 40 Mg Tablet. PO QDAC JOHNNY Sodium Chloride 1 syr 09/12/21 05:00 09/12/21 06:28 0.9% Sodium Chloride 10 Ml Disp.Syrin IVF 1 syr Q8HR JOHNNY Administration Discontinued Medications Generic Name Dose Route Start Last Admin Trade Name Freq PRN Reason Stop Dose Admin Acetaminophen 650 mg 09/11/21 22:22 09/11/21 22:34 Acetaminophen 325 Mg Tablet PO 09/11/21 22:23 650 mg ONCE ONE Administration Albuterol Sulfate 2 puff 09/12/21 09:00 Albuterol Sulfate (Ventolin Hfa) 18 Gm 1 Puff With Spacer IH QID JOHNNY Azithromycin 500 mg 09/11/21 22:23 09/11/21 22:36 Azithromycin 250 Mg Tablet PO 09/11/21 22:24 500 mg ONCE STA Administration CEFTRIAXONE/D5W 1 GM PREMIX 1 gm in 50 mls @ 75 mls/hr 09/11/21 21:45 09/11/21 22:05 Rocephin 1 Gm/50 Ml D5w IV 09/11/21 22:24 75 mls/hr ONCE STA Administration Pantoprazole Sodium 40 mg 09/12/21 09:00 09/12/21 08:13 Pantoprazole Sodium 40 Mg Tablet. PO 40 mg DAILY JOHNNY Administration Vital Signs: Temp Pulse Resp BP Pulse Ox 09/11/21 19:40 95 H 20 159/81 H 86 L 09/11/21 17:10 96 09/11/21 16:42 98.2 F 94 H 20 148/73 H 90 L Discharge Plan Discharge Patient Disposition: PLACED OBSERVATION Discharge Problem: Community acquired pneumonia, Acute respiratory failure with hypoxemia, Chronic progressive renal failure, stage 4 (severe) ED Provider: JENNIFER CARRION Condition: Stable <JENNIFER CARRION DO - Last Filed: 09/12/21 12:15> Physician Progress Note: [id number]:Spoke with Dr Aquino regarding case. advsied if pt dischargedd from ER to have patient to follow up with Dr Leblanc as out patient tomorrow for arrangements to obtain home oxygen [address] Thompson regarding ABG and possible need to admit for add itional therapy
[2021-09-11 17:27] LABS: BASOPHILS % (AUTO) 0.3 % (0.0-3.0); EOSINOPHILS # (AUTO) 0.3 K/ul (0.0-0.7); EOSINOPHILS % (AUTO) 3.4 % (0.0-7.0); HEMATOCRIT 26.9 % (42.0-52.0); HEMOGLOBIN 8.2 g/dl (14.0-18.0); IMMATURE GRANULOCYTE % (AUTO) 0.4 % (0.0-5.0); LYMPHOCYTES # (AUTO) 0.5 K/uL (0.60-3.4); LYMPHOCYTES % (AUTO) 6.3 (10.0-50.0); MEAN CORPUSCULAR HEMOGLOBIN 22.8 pg (27.0-31.0); MEAN CORPUSCULAR HGB CONC 30.5 (31.8-35.4); MEAN CORPUSCULAR VOLUME 74.9 fl (80.0-94.0); MONOCYTES # (AUTO) 0.5 K/uL (0.4-2.0); MONOCYTES % (AUTO) 6.4 (0-10); NEUTROPHILS # (AUTO) 6.6 K/ul (2.0-6.9); NEUTROPHILS % (AUTO) 83.2 % (42.2-75.2); PLATELET COUNT 301 10^3/uL (140-440); RDW COEFFICIENT OF VARIATION 20.2 % (11.6-14.8); RED BLOOD COUNT 3.59 10^6/ul (4.70-6.10); WHITE BLOOD COUNT 7.91 K/ul (4.2-10.2)
[2021-09-11 17:40] LABS: ALANINE AMINOTRANSFERASE 54.3 U/L (0-50); ALBUMIN 3.84 g/dL (3.5-5.0); ALKALINE PHOSPHATASE 377.5 U/L (38-126); ASPARTATE AMINO TRANSFERASE 44.1 U/L (17-59); BILIRUBIN,TOTAL 1.15 mg/dL (0.2-1.3); BLOOD UREA NITROGEN 11.6 mg/dL (9-20); CALCIUM 9.37 mg/dL (8.4-10.2); CARBON DIOXIDE 33.7 mmol/L (22-30.0); CHLORIDE 93.7 mmol/L (98-107); CREATINE KINASE 20.9 U/L (55-170); CREATININE 2.54 mg/dL (0.60-1.10); GLUCOSE 74.9 mg/dL (74-106); POTASSIUM 3.04 mmol/L (3.5-5.1); SODIUM 135.8 mmol/L (134.5-145); TOTAL PROTEIN 7.53 g/dL (6.3-8.2)
[2021-09-11 17:41] LABS: ANISOCYTOSIS 1+ (NOT PRESENT); HYPOCHROMASIA 2+ (NOT PRESENT); OVALOCYTES 2+ (NOT PRESENT)
[2021-09-11 18:03] LABS: MOLECULAR FLU A NEGATIVE BY NAAT (NEGATIVE); MOLECULAR FLU B NEGATIVE BY NAAT (NEGATIVE)
--- NOTE | 2021-09-11 18:32 | DI ---
EXAM: CHEST RADIOGRAPH (1 VIEW) TECHNIQUE: Frontal Chest Radiograph. HISTORY: Dyspnea COMPARISON: Chest radiograph 10/23/2019 FINDINGS: Lines, Tubes, Devices: Right internal jugular central venous catheter with tip at the cavoatrial dank ction. Postoperative changes of median sternotomy. Lungs and Pleura: Diffuse bilateral interstitial and alveolar opacities. No pleural effusion. No p neumothorax. Cardiomediastinum: Enlarged cardiomediastinal silhouette. Mild aortic calcifications. Bones/Soft Tissues: No acute osseous abnormality. No soft tissue abnormality. Upper Abdomen: Within normal limits. IMPRESSION: Diffuse bilateral lung opacities likely due to pulmonary edema and/or multifocal pneumonia.
[2021-09-11 19:32] LABS: ABG O2 HGB 85.2 % (95-100); BEecf 10.8 (-2.0-3.0); COHb 3.1 (0.5-1.5); HCO3 32.4 (21-28); MetHb 0.7 (0-1.5); TCO2 33.4 (19-24); sO2 87.9 % (94-98); tHb 8.3 g/dl (11.7-17.4)
[2021-09-11] MEDS ORDERED: ROCEPHIN 1 GM/50 ML D5W 1 GM/50 ML BAG IV STA (21:45)
[2021-09-11] MEDS ORDERED: TYLENOL PO ONE (22:22)
[2021-09-11] MEDS ORDERED: ZITHROMAX PO STA (22:23)
[2021-09-11] MEDS ORDERED: ZOFRAN 4 MG/2 ML IVP PRN (22:23)
[2021-09-11] MEDS ORDERED: TYLENOL PO PRN (22:23)
[2021-09-12 00:12] VITALS: BMI 34.2
[2021-09-12] MEDS: VENTOLIN HFA (PER PUFF-WITH SPACER) IH SCH ×4 (04:45→20:10)
[2021-09-12 05:07] LABS: BASOPHILS % (AUTO) 0.5 % (0.0-3.0); EOSINOPHILS # (AUTO) 0.2 K/ul (0.0-0.7); EOSINOPHILS % (AUTO) 3.2 % (0.0-7.0); HEMATOCRIT 26.3 % (42.0-52.0); IMMATURE GRANULOCYTE % (AUTO) 0.5 % (0.0-5.0); LYMPHOCYTES # (AUTO) 0.7 K/uL (0.60-3.4); LYMPHOCYTES % (AUTO) 12.4 (10.0-50.0); MEAN CORPUSCULAR HEMOGLOBIN 22.9 pg (27.0-31.0); MEAN CORPUSCULAR HGB CONC 30.4 (31.8-35.4); MEAN CORPUSCULAR VOLUME 75.1 fl (80.0-94.0); MONOCYTES # (AUTO) 0.6 K/uL (0.4-2.0); MONOCYTES % (AUTO) 9.9 (0-10); NEUTROPHILS # (AUTO) 4.1 K/ul (2.0-6.9); NEUTROPHILS % (AUTO) 73.5 % (42.2-75.2); PLATELET COUNT 278 10^3/uL (140-440); RDW COEFFICIENT OF VARIATION 20.1 % (11.6-14.8); WHITE BLOOD COUNT 5.57 K/ul (4.2-10.2)
[2021-09-12 05:20] LABS: ALANINE AMINOTRANSFERASE 50.4 U/L (0-50); ALBUMIN 3.63 g/dL (3.5-5.0); ALKALINE PHOSPHATASE 305.8 U/L (38-126); ASPARTATE AMINO TRANSFERASE 48.6 U/L (17-59); BILIRUBIN,TOTAL 0.94 mg/dL (0.2-1.3); BLOOD UREA NITROGEN 18.6 mg/dL (9-20); CALCIUM 9.02 mg/dL (8.4-10.2); CHLORIDE 94.8 mmol/L (98-107); CREATININE 3.1 mg/dL (0.60-1.10); GLUCOSE 74.5 mg/dL (74-106); POTASSIUM 3.42 mmol/L (3.5-5.1); SODIUM 134.8 mmol/L (134.5-145)
[2021-09-12] MEDS: ASPIRIN EC PO SCH (08:13)
[2021-09-12] MEDS: TRIGLIDE PO SCH (08:13)
[2021-09-12] MEDS: NEURONTIN PO SCH ×3 (08:14→21:50)
[2021-09-12] MEDS: ZITHROMAX PO SCH (08:14)
[2021-09-12] MEDS: LOPRESSOR PO SCH ×2 (08:14→21:50)
[2021-09-12] MEDS: ZESTRIL PO SCH (08:15)
[2021-09-12] MEDS: FLOVENT HFA 220 MCG IH SCH ×2 (08:23→22:31)
[2021-09-12] MEDS ORDERED: VENTOLIN HFA (PER PUFF-WITH SPACER) IH SCH (09:00)
[2021-09-12] MEDS ORDERED: PROTONIX PO SCH (09:00)
[2021-09-12] MEDS: HUMALOG SUBCUT SCH ×3 (10:56→16:49)
[2021-09-12] MEDS ORDERED: LANTUS SUBCUT SCH (21:00)
[2021-09-12] MEDS ORDERED: LIPITOR PO SCH (21:00)
[2021-09-12] MEDS ORDERED: ROCEPHIN 1 GM/50 ML D5W 1 GM/50 ML BAG IV SCH (21:00)
[2021-09-13] MEDS: VENTOLIN HFA (PER PUFF-WITH SPACER) IH SCH ×2 (04:05→10:06)
[2021-09-13 04:50] VITALS: BP 133/81; TEMP 97.9
[2021-09-13 06:13] LABS: BASOPHILS % (AUTO) 0.5 % (0.0-3.0); EOSINOPHILS # (AUTO) 0.5 K/ul (0.0-0.7); EOSINOPHILS % (AUTO) 7.1 % (0.0-7.0); HEMATOCRIT 27.3 % (42.0-52.0); HEMOGLOBIN 8.3 g/dl (14.0-18.0); IMMATURE GRANULOCYTE # (AUTO) 0.1 (0.0-1.0); IMMATURE GRANULOCYTE % (AUTO) 0.7 % (0.0-5.0); LYMPHOCYTES # (AUTO) 1.3 K/uL (0.60-3.4); MEAN CORPUSCULAR HEMOGLOBIN 22.9 pg (27.0-31.0); MEAN CORPUSCULAR HGB CONC 30.4 (31.8-35.4); MEAN CORPUSCULAR VOLUME 75.4 fl (80.0-94.0); MONOCYTES # (AUTO) 0.7 K/uL (0.4-2.0); MONOCYTES % (AUTO) 9.6 (0-10); NEUTROPHILS # (AUTO) 4.7 K/ul (2.0-6.9); NEUTROPHILS % (AUTO) 64.1 % (42.2-75.2); PLATELET COUNT 317 10^3/uL (140-440); RED BLOOD COUNT 3.62 10^6/ul (4.70-6.10); WHITE BLOOD COUNT 7.32 K/ul (4.2-10.2)
[2021-09-13] MEDS ORDERED: PROTONIX PO SCH (06:30)
[2021-09-13 06:33] LABS: ALANINE AMINOTRANSFERASE 69.3 U/L (0-50); ALBUMIN 3.8 g/dL (3.5-5.0); ASPARTATE AMINO TRANSFERASE 75.9 U/L (17-59); BILIRUBIN,TOTAL 0.81 mg/dL (0.2-1.3); BLOOD UREA NITROGEN 36.8 mg/dL (9-20); CALCIUM 9.45 mg/dL (8.4-10.2); CARBON DIOXIDE 31.2 mmol/L (22-30.0); CHLORIDE 94.4 mmol/L (98-107); GLUCOSE 53.1 mg/dL (74-106); POTASSIUM 3.16 mmol/L (3.5-5.1); SODIUM 134.7 mmol/L (134.5-145); TOTAL PROTEIN 7.28 g/dL (6.3-8.2)
[2021-09-13 06:38] LABS: CREATININE 4.16 mg/dL (0.60-1.10)
[2021-09-13] MEDS: ZITHROMAX PO SCH (08:40)
[2021-09-13] MEDS: NEURONTIN PO SCH (08:40)
[2021-09-13] MEDS: ASPIRIN EC PO SCH (08:40)
[2021-09-13] MEDS: LOPRESSOR PO SCH (08:40)
[2021-09-13] MEDS: TRIGLIDE PO SCH (08:40)
[2021-09-13] MEDS: HUMALOG SUBCUT SCH (08:41)
[2021-09-13] MEDS: ZESTRIL PO SCH (08:41)
[2021-09-13] MEDS: FLOVENT HFA 220 MCG IH SCH (08:44)
[2021-09-13] MEDS ORDERED: ZITHROMAX PO SCH (09:00)
== END 2021-09-13 10:50 | disposition home health service (06) ==
LOC: ED 16:42 → MEDSURG A 16:42
PROVIDERS: ADMIT Family Medicine; ATTEND Family Medicine
DX: I95.9 Hypotension, unspecified; E86.0 Dehydration; I50.9 Heart failure, unspecified; J18.9 Pneumonia, unspecified organism; J96.01 Acute respiratory failure with hypoxia; R10.30 Lower abdominal pain, unspecified; Z68.39 Body mass index [BMI] 39.0-39.9, adult; N17.9 Acute kidney failure, unspecified; Z99.2 Dependence on renal dialysis; A41.9 Sepsis, unspecified organism; R65.10 Systemic inflammatory response syndrome (SIRS) of non-infectious origin without acute organ dysfunction; R79.89 Other specified abnormal findings of blood chemistry; D64.9 Anemia, unspecified; E66.01 Morbid (severe) obesity due to excess calories; E11.9 Type 2 diabetes mellitus without complications